=== PATIENT | female | born 1950 | race Caucasian/White ===

== ENCOUNTER 2016-10-29 05:50 | Day surgery (SDC) | payer MEDICARE, OTHER ==
[~2016-10-29 05:50] MED LIST: Dextrose 5%-0.45% NaCl 1,000 ML IV SCH
[2016-10-29] MEDS ORDERED: Dextrose 5%-0.45% NaCl 1,000 ML IV SCH (06:00)
[2016-10-29] MEDS ORDERED: Sodium Chloride 0.9% 10 ML Syringe FLUSH PRN (06:00)
[2016-10-29] MEDS ORDERED: Midazolam 1 MG/ML 2 ML SDV ONE (06:15)
[2016-10-29] MEDS ORDERED: fentaNYL 100 MCG/2 ML SDV ONE (06:15)
[2016-10-29] MEDS ORDERED: fentaNYL 100 MCG/2 ML SDV IV ONE ×3 (07:01→16:13)
[2016-10-29] MEDS ORDERED: Midazolam 1 MG/ML 2 ML SDV IV ONE ×7 (07:02→16:13)
--- NOTE | 2016-10-29 08:04 | OR ---
DATE: 10/29/2016 PROCEDURES: Total colonoscopy and cold snare polypectomy. INSTRUMENT USED: CF-H180AL Olympus video colonoscope. PREMEDICATIONS: Fentanyl 100 mcg intravenous, Versed 4 mg intravenous. Nasal O2 cannula. The procedure was done under pulse oximetry, BP recording, and castings trimmer. INDICATION: The patient with previous colonic tubular adenoma. Surveillance colonoscopic examination is done for detection of any polypoid lesions and removal, endoscopic hemostasis therapy if needed. DESCRIPTION OF PROCEDURE: Initial rectal exam was unremarkable. Rigid anoscopy was normal. The colonoscope was passed with ease up to the ileocecal area, photographs were taken of the normal-appearing cecum, identified by appendiceal orifice and double-bulged ileocecal folds. No bleeding was noted from any of the visualized areas at the commencement of the examination. No stricture. No vascular ectasia. No large isolated ulcerations seen. No evidence of diffuse inflammatory bowel disease in the form of friability, contact bleeding, or ulcerations. In the proximal ascending colon, 5 mm sized benign-appearing polyp was noted, photograph was taken, cold snare polypectomy was done, the tissue was retrieved and sent for histopathology. Probing the proximal sides of folds and flexures, using adequate distention and clearing of the stool material, withdrawal of the scope was made, cecum to rectum time over 6 minutes. No bleeding was noted from any of the visualized areas at the completion of examination. IMPRESSION: Diminutive proximal ascending cold polyp. The patient tolerated the procedure well. [facility] /[id number]
[2016-10-29 09:53] VITALS: BP 120/62
== END 2016-10-29 09:20 | disposition home or self-care (01) ==
LOC: DL.ENDO 05:50
PROVIDERS: ATTEND Internal Medicine Gastroenterology
DX: Z12.11 Encounter for screening for malignant neoplasm of colon (principal); D12.2 Benign neoplasm of ascending colon; E11.22 Type 2 diabetes mellitus with diabetic chronic kidney disease; I12.9 Hypertensive chronic kidney disease with stage 1 through stage 4 chronic kidney disease, or unspecified chronic kidney disease; N18.9 Chronic kidney disease, unspecified; E03.9 Hypothyroidism, unspecified; E78.5 Hyperlipidemia, unspecified; Z88.0 Allergy status to penicillin; Z88.2 Allergy status to sulfonamides; Z88.8 Allergy status to other drugs, medicaments and biological substances
CPT/HCPCS: 45385; J2250; J3010; J7042; 88305

== ENCOUNTER 2019-01-18 06:52 | Day surgery (SDC) | payer MEDICARE, OTHER ==
[~2019-01-18 06:52] MED LIST changes: +Dexamethasone/Tobramycin 0.1-0.3% Ophth Oint 3.5 GM Tube ONE; -Dextrose 5%-0.45% NaCl 1,000 ML IV SCH; +Proparacaine 0.5% Ophth Soln 15 ML Bottle ONE
[2019-01-18] MEDS ORDERED: Dexamethasone 4 MG/ML SDV IV ONE (06:53)
[2019-01-18] MEDS ORDERED: Midazolam 1 MG/ML 2 ML SDV IV ONE (06:53)
[2019-01-18] MEDS ORDERED: Acetaminophen 325 MG Tab PO PRN (07:00)
[2019-01-18] MEDS ORDERED: Phenylephrine 10% Ophth Soln 5 ML Bot EYERT PRN (07:00)
[2019-01-18] MEDS ORDERED: Povidone-Iodine 5% Sterile Ophth Soln 30 ML Bottle EYERT ONE ×2 (07:00→08:19)
[2019-01-18] MEDS ORDERED: Ondansetron 4 MG/2 ML SDV IVPUSH PRN (07:00)
[2019-01-18] MEDS ORDERED: Moxifloxacin 0.5% Ophth Soln 3 ML Bottle EYERT ONE (07:00)
[2019-01-18] MEDS ORDERED: Sodium Chloride 0.9% 10 ML Syringe FLUSH PRN (07:00)
[2019-01-18] MEDS ORDERED: Proparacaine 0.5% Ophth Soln 15 ML Bottle EYERT ONE (07:00)
[2019-01-18] MEDS ORDERED: Cataract Ophth Solution EYERT ONE (07:00)
[2019-01-18] MEDS ORDERED: Timolol Maleate 0.5% Ophth Soln 5 ML Bottle EYERT ONE (07:00)
[2019-01-18] MEDS ORDERED: Phenylephrine 10% Ophth Soln 5 ML Bot EYERT ONE (07:00)
[2019-01-18] MEDS ORDERED: Diclofenac Sodium 0.1% Ophth Soln 5 ML Bottle EYERT ONE (08:19)
[2019-01-18] MEDS ORDERED: Apraclonidine 0.5% Ophth Soln 5 ML Bot EYERT ONE (08:19)
[2019-01-18] MEDS ORDERED: Tetracaine HCl/PF 0.5% 4 ML Bottle EYERT ONE (08:19)
[2019-01-18] MEDS ORDERED: Lidocaine 1% 30 ML SDV ONE (08:19)
[2019-01-18] MEDS ORDERED: Dexamethasone/Tobramycin 0.1-0.3% Ophth Oint 3.5 GM Tube EYERT ONE (08:20)
[2019-01-18] MEDS ORDERED: Chondroitin Sulfate/Hyaluronate Sodium Ophth Inj 0.75 ML Syringe EYERT ONE (08:20)
[2019-01-18] MEDS ORDERED: Balanced Salt Solution Ophth Irrig 500 ML Bottle IOCULAR ONE (08:20)
[2019-01-18] MEDS ORDERED: Chondroitin Sulfate/Hyaluronate Sodium Ophth Inj 0.5 ML Syringe IOCULAR ONE (08:21)
[2019-01-18] MEDS ORDERED: Acetylcholine 20 MG/2 ML Intraocular Inj Kit EYERT ONE (08:21)
[2019-01-18] MEDS ORDERED: Vancomycin 500 MG SDV EYERT ONE (08:21)
[2019-01-18 11:24] VITALS: PULSE 60
[2019-01-18 11:25] VITALS: BP 139/78
--- NOTE | 2019-01-19 08:25 | OR ---
DATE: 01/18/2019 PREOPERATIVE DIAGNOSES: 1. Visually significant mixed cataract, right eye. 2. Primary open angle glaucoma, right eye. POSTOPERATIVE DIAGNOSES: 1. Visually significant mixed cataract, right eye. 2. Primary open angle glaucoma, right eye. PROCEDURES: 1. Extracapsular cataract extraction with intraocular lens implant. 2. Placement of iStent for glaucoma control. SURGEON: Tristan Ansari MD ANESTHESIA: Local MAC. INDICATION: Ms. Broussard was seen in the clinic. Examination revealed visually significant mixed cataract and mild primary open-angle glaucoma. I explained options, offered cataract surgery, and I explained risks, including, but not limited to, infection, retinal detachment, loss of vision, need for additional surgery, amongst others. We discussed implant options. She has requested surgery with a monofocal implant. I recommended the iStent. OPERATIVE DESCRIPTION: The patient was prepped and draped in a sterile fashion and topical anesthesia was applied. Attention was placed on the operative eye. A sterile lid speculum was placed to allow operative exposure. Paracentesis was made temporal. Intracameral lidocaine was administered. Viscoelastic was injected. A full-thickness corneal incision was made using the trapezoidal blade. Bent needle cystotome was then used to make a small beulah in the anterior capsule and a 360-degree curvilinear capsulorrhexis was created. Nucleus was then hydrodissected and hydrodelineated using balanced saline solution. Nucleus was then decompressed centrally and rotated and noted to be free of adhesions. Nucleus was then removed using the phacoemulsification handpiece. Additional viscoelastic was then injected into the capsular bag and the intraocular lens was inserted into the capsular bag. The iStent portion of the procedure was then performed. Following removal of the nucleus and cortex, the irrigation and aspiration handpiece was inserted to remove viscoelastic from the posterior surface of the IOL. Additional viscoelastic was then inserted into the anterior chamber angle directly opposite the corneal incision. Miochol was injected into the nasal iris to promote pupillary contraction. The patient's head was then rotated 35 degrees away from the initial position. The operating microscope was also rotated 35 degrees to achieve the proper orientation. The gonioprism was then placed onto the eye. The iStent was then inserted into the anterior chamber with the right hand and the stent was introduced into the pigmented trabecular meshwork. The stent was advanced beneath the trabecular meshwork until approximately two-thirds of the body was covered and then the stent was released from the insertion device. The stent was then tapped into its final resting position using the insertion device. The device was then reinspected to ensure that it was securely in position. The viscoelastic was aspirated from the anterior chamber. Wound and paracentesis sites were hydrated using balanced saline solution. Vancomycin 0.1 mL was injected into the anterior chamber. Intraocular lens was inspected and noted to be clear and well centered. Postoperative drops were placed and a sterile eye patch and shield were placed over the operative eye. The patient was then transported to the postoperative recovery area having tolerated the procedure well. No complications occurred. [facility] /[id number]
== END 2019-01-18 09:37 | disposition home or self-care (01) ==
LOC: DL.SDS 06:52
PROVIDERS: ATTEND Ophthalmology
DX: E11.36 Type 2 diabetes mellitus with diabetic cataract (principal); H40.1111 Primary open-angle glaucoma, right eye, mild stage; E11.39 Type 2 diabetes mellitus with other diabetic ophthalmic complication; I12.9 Hypertensive chronic kidney disease with stage 1 through stage 4 chronic kidney disease, or unspecified chronic kidney disease; E11.22 Type 2 diabetes mellitus with diabetic chronic kidney disease; N18.9 Chronic kidney disease, unspecified; E78.5 Hyperlipidemia, unspecified; E03.9 Hypothyroidism, unspecified; Z79.899 Other long term (current) drug therapy; Z88.1 Allergy status to other antibiotic agents; Z88.6 Allergy status to analgesic agent; Z88.0 Allergy status to penicillin
CPT/HCPCS: A9270-GY; C1780; C1783; J1100; J2001; J2250; J3370

== ENCOUNTER 2019-07-23 12:14 | Emergency (ER) | payer MEDICARE, OTHER ==
[2019-07-23] MEDS ORDERED: Diphtheria,Pertussis(Acell),Tetanus Vaccine 0.5 ML SDV IM ONE (12:32)
[2019-07-23] MEDS ORDERED: Sodium Chloride 0.9% 10 ML Syringe FLUSH PRN (12:32)
[2019-07-23 12:40] VITALS: BP 115/64; PULSE 74
--- NOTE | 2019-07-23 12:53 | EDM.PDOC ---
ED HPI GENERAL MEDICAL PROBLEM - General Chief Complaint: Head Injury Stated Complaint: FELL AND HIT HEAD Time Seen by Provider: 07/23/19 12:53 Source of Information: Reports: Patient, RN, RN Notes Reviewed History Limitations: Reports: No Limitations - History of Present Illness INITIAL COMMENTS - FREE TEXT/NARRATIVE: patient presents to the ER with her with complaint of blacking out, falling backwards and hitting her head. Patient complains of laceration to the back side of the head. states they were just going to eat breakfast and she was standing at the counter when she stated she became very dizzy and felt as though she was going to pass out. He states she fell backwards and hit her head causing a gash in the back of her head. He states when she came to she ran to the bathroom and was incontinent of stool with a large amount. Patient states history of bipolar disorder. States she was on fluphenazine, and developed a tremor without medication. Last week was started on Abilify. states she has not been herself since she started on the Abilify, not sleeping well at night. Patient states she is borderline diabetic and controls her sugars with diet. Patient denies any cardiac history, denies stroke in the past. Patient denies any recent illness. patient denies fever, chills, nausea, vomiting, diarrhea, chest pains, shortness of breath. Patient denies any exposure to anyone with any known illness, and denies any travel. Patient staes she does have some neck tenderness since the fall this morning. Also states her tailbone hurts as approximately 1 week ago she fell on the steps landing on her backside. Onset: Today, Sudden Posterior Head Pain Score (Numeric/FACES): 6 - Related Data Allergies Allergy/AdvReac Type Severity Reaction Status Date / Time cefaclor Allergy Hives Verified 07/23/19 12:34 celecoxib Allergy Hives Verified 07/23/19 12:34 Penicillins Allergy Hives Verified 07/23/19 12:34 Sulfa (Sulfonamide Allergy Rash Verified 07/23/19 12:34 Antibiotics) Home Meds: Home Meds Ascorbic Acid [Vitamin C] 100 mg PO DAILY 10/28/16 [History] Calcium Carbonate/Vitamin D3 [Calcium 600 + Vit D Tablet] 2 tab PO DAILY [History] Levothyroxine [Synthroid] 100 mcg PO DAILY 10/28/16 [History] Multivitamin [Super Multivitamin] 1 tab PO DAILY 10/28/16 [History] Timolol [Betimol] 1 drop EYEBOTH DAILY 10/28/16 [History] Vitamin E 400 units PO DAILY 10/28/16 [History] traZODone 100 mg PO BEDTIME 10/28/16 [History] fluPHENAZine HCl [fluPHENAZine] 10 mg PO DAILY 03/10/18 [History] Ketorolac [Acular 0.5% Ophth Soln] 1 drop EYELF ASDIRECTED 01/09/19 [History] Latanoprost [Xalatan 0.005% Ophth Soln] 1 drop EYEBOTH BEDTIME 01/09/19 [History ] Moxifloxacin [Vigamox 0.5% Ophth Soln] 1 drop EYELF ASDIRECTED 01/09/19 [History ] Prednisolone Acetate/Pf [Prednisolone Acet 1% Eye Drop] 1 drop EYELF ASDIRECTED 01/09/19 [History] Rosuvastatin [Crestor] 5 mg PO DAILY 01/09/19 [History] Brimonidine/Timolol [Combigan 0.2%/0.5% Ophth Soln] 1 drop EYEBOTH BID 01/18/19 [History] Past Medical History HEENT History: Reports: Cataract, Glaucoma, Impaired Vision, Other (See Below) Other HEENT History: WEARS CORRECTIVE LENS Cardiovascular History: Reports: Arrhythmia, High Cholesterol, Hypertension Respiratory History: Reports: None Gastrointestinal History: Reports: Chronic Diarrhea, Colon Polyp, Irritable Bowel Syndrome Genitourinary History: Reports: Chronic Renal Insuffiency, Other (See Below) Other Genitourinary History: HX OF HYPERURICEMIA [employer] History: Reports: Polycystic Ovaries Musculoskeletal History: Reports: Other (See Below) Other Musculoskeletal History: chronic interstitial nephritis Neurological History: Reports: None Psychiatric History: Reports: Anxiety, Bipolar, Depression, Schizophrenia Endocrine/Metabolic History: Reports: Diabetes, Type II, Hyperparathyroidism, Hypothyroidism, Osteopenia, Other (See Below) Other Endocrine/Metabolic History: Hyperkalemia. Bone metabolism disorder. Lipid disorder Hematologic History: Reports: Other (See Below) Other Hematologic History: microalbuminuria Immunologic History: Reports: None Oncologic (Cancer) History: Reports: None Dermatologic History: Reports: None - Infectious Disease History Infectious Disease History: Reports: Chicken Pox, Measles, Mumps - Past Surgical History Head Surgeries/Procedures: Reports: None HEENT Surgical History: Reports: Oral Surgery Cardiovascular Surgical History: Reports: None Respiratory Surgical History: Reports: None GI Surgical History: Reports: Colonoscopy, Polypectomy Female Surgical History: Reports: None Endocrine Surgical History: Reports: None Neurological Surgical History: Reports: None Musculoskeletal Surgical History: Reports: None Oncologic Surgical History: Reports: None Dermatological Surgical History: Reports: None Social & Family History - Family History Family Medical History: Noncontributory - Tobacco Use Smoking Status *Q: Never Smoker - Caffeine Use Caffeine Use: Reports: Coffee Other Caffeine Use: AVERAGE OF 3 CUPS COFFEE DAILY - Recreational Drug Use Recreational Drug Use: No ED ROS GENERAL - Review of Systems Review Of Systems: Comprehensive ROS is negative, except as noted in HPI. ED EXAM, HEAD INJURY - Physical Exam Exam: See Below Exam Limited By: No Limitations General Appearance: Alert, WD/WN, No Apparent Distress Head: Normocephalic, Scalp Lacerations Nexus Criteria: Posterior, Midline Cervical Tenderness. No: Evidence of Intoxication, Altered Level of Consciousness, Focal Neurological Deficit, Painful Distraction Injuries Eyes: Bilateral Eye: Abnormal EOM, EOMI, Normal Inspection Ears: Normal External Exam, Hearing Grossly Normal Nose: Normal Inspection Throat/Mouth: Normal Inspection, Normal Lips, Normal Teeth, Normal Gums, Normal Oropharynx, Normal Voice, No Airway Compromise Neck: Normal Alignment, Normal Inspection, Limited Range of Motion, Tender Lateral, Tender Midline Respiratory: No Respiratory Distress, Lungs Clear, Normal Breath Sounds, No Accessory Muscle Use, Chest Non-Tender Cardiovascular: Normal Peripheral Pulses, Regular Rate, Rhythm, No Edema, No Gallop, No JVD, No Murmur, No Rub GI/Abdominal Exam: Normal Bowel Sounds, Soft, Non-Tender, No Organomegaly, No Distention, No Abnormal Bruit, No Mass (Female) Exam: Deferred Rectal (Female) Exam: Deferred Back Exam: Normal Inspection, Decreased Range of Motion Extremities: Normal Inspection, Normal Range of Motion, Non-Tender, No Pedal Edema, Normal Capillary Refill Neurologic: handbook writer II-XII nml As Tested, No Motor/Sensory Deficits, Alert, Normal Mood/Affect, Oriented x 3, Other (flat affect) Skin: Normal Color, Warm/Dry - [place] Coma Score Best Eye Response (Santos): (4) Open Spontaneously Best Verbal Response (Santos): (5) Oriented Best Motor Response (Santos): (6) Obeys Commands [place] Total: 15 ED LACERATION/WOUND & BONI PROC - Laceration/Wound Repair Left Middle Posterior Occipital Head Lac/wound length in cm: 2.5 Appearance: Subcutaneous Distal NVT: Neuro & Vascular Intact Skin Prep: Chlorhexidine (Hibiciens) Exploration/Debridement/Repair: Wound Explored, In a Bloodless Field, Explored to Base, No Foreign Material Found Closed with: [place] # of Sutures: 5 Drain Placement: No Sterile Dressing Applied: Nurse Tetanus Status Addressed: Yes Complications: No Course - Vital Signs Last Recorded V/S: Last Vital Signs Temp 97.8 F 07/23/19 12:34 Pulse 74 07/23/19 12:34 Resp 16 07/23/19 12:34 BP 115/64 07/23/19 12:34 Pulse Ox 100 07/23/19 12:34 - Orders/Labs/Meds Orders: Active Orders 24 hr Category Date Time Status EKG Documentation Completion [RC] STAT Care 07/23/19 12:34 Active Peripheral IV Care [RC] . DIRECTED Care 07/23/19 12:35 Active Vaccines to be Administered [RC] PER UNIT ROUTINE Care 07/23/19 12:32 Active Cervical Spine wo Cont [CT] Urgent Exams 07/23/19 13:12 Taken Head wo Cont [CT] Stat Exams 07/23/19 12:32 Taken Lumbar Spine 2 or 3V [CR] Urgent Exams 07/23/19 13:12 Taken Sacrum Coccyx Min 2V [CR] Urgent Exams 07/23/19 13:12 Taken CULTURE URINE [RM] Stat Lab 07/23/19 14:00 Received Sodium Chloride 0.9% [Saline Flush] Med 07/23/19 12:32 Active 10 ml FLUSH ASDIRECTED PRN Peripheral IV Insertion Adult [OM.PC] Stat Oth 07/23/19 12:35 Ordered Medication Orders Sodium Chloride (Saline Flush) 10 ml FLUSH ASDIRECTED PRN PRN Reason: Keep Vein Open Labs: Laboratory Tests 07/23/19 07/23/19 07/23/19 Range/Units 12:46 12:46 12:46 WBC 7.7 (5.0-10.0) 10^3/uL RBC 3.97 L (4.2-5.4) 10^6/uL Hgb 12.5 (12.0-16.0) g/dL Hct 36.5 L (37.0-47.0) % MCV 91.9 (80-100) fL MCH 31.5 (27.0-34.0) pg MCHC 34.2 (33.0-35.0) g/dL Plt Count 270 (150-450) 10^3/uL Neut % (Auto) 71.5 (42.2-75.2) % Lymph % (Auto) 17.7 L (20.5-50.1) % [place] % (Auto) 9.7 H (2-8) % Eos % (Auto) 0.6 L (1.0-3.0) % Baso % (Auto) 0.5 (0.0-1.0) % PT 10.2 (9.0-12.0) SEC INR 1.1 (0.9-1.2) Sodium 139 (136-145) mmol/L Potassium 3.9 (3.5-5.1) mmol/L Chloride 101 (98-107) mmol/L Carbon Dioxide 27 (21-32) mmol/L Anion Gap 14.9 H (7-13) mEq/L BUN 23 H (7-18) mg/dL Creatinine 1.43 H (0.55-1.02) mg/dL Est Cr Clr Drug Dosing TNP Estimated GFR (MDRD) 36 BUN/Creatinine Ratio 16.1 (No establ ref range) Glucose 133 H (74-99) mg/dL Calcium 8.8 (8.5-10.1) mg/dL Total Bilirubin 0.4 (0.2-1.0) mg/dL AST 22 (15-37) U/L ALT 34 (14-59) U/L Alkaline Phosphatase 65 (46-116) U/L Troponin I < 0.017 (0.000-0.056) ng/mL Total Protein 7.0 (6.4-8.2) g/dL Albumin 3.9 (3.4-5.0) g/dL Globulin 3.1 Albumin/Globulin Ratio 1.3 Urine Color (YELLOW) Urine Appearance (CLEAR) Urine pH (5.0-9.0) Ur Specific [place] (1.005-1.030) Urine Protein (NEGATIVE) Urine Glucose (UA) (NEGATIVE) Urine Ketones (NEGATIVE) Urine Occult Blood (NEGATIVE) Urine Nitrite (NEGATIVE) Urine Bilirubin (NEGATIVE) Urine Urobilinogen (0.2-1.0) mg/dL Ur Leukocyte Esterase (NEGATIVE) U Hyaline Cast (Auto) Urine RBC /HPF Urine WBC (0-5/HPF) /HPF Ur Epithelial Cells (NOT SEEN) /HPF Urine Bacteria (0-FEW/HPF) /HPF Urine Mucus (NOT SEEN) /LPF Urine Opiates Screen (NEGATIVE) Ur Oxycodone Screen (NEGATIVE) Urine Methadone Screen (NEGATIVE) Ur Barbiturates Screen (NEGATIVE) U Tricyclic Antidepress (NEGATIVE) Ur Phencyclidine Scrn (NEGATIVE) Ur Amphetamine Screen (NEGATIVE) U Methamphetamines Scrn (NEGATIVE) Urine MDMA Screen (NEGATIVE) U Benzodiazepines Scrn (NEGATIVE) Urine Cocaine Screen (NEGATIVE) U Marijuana (THC) Screen (NEGATIVE) Ethyl Alcohol < 3 (0) mg/dL 07/23/19 07/23/19 Range/Units 14:00 14:00 WBC (5.0-10.0) 10^3/uL RBC (4.2-5.4) 10^6/uL Hgb (12.0-16.0) g/dL Hct (37.0-47.0) % MCV (80-100) fL MCH (27.0-34.0) pg MCHC (33.0-35.0) g/dL Plt Count (150-450) 10^3/uL Neut % (Auto) (42.2-75.2) % Lymph % (Auto) (20.5-50.1) % [place] % (Auto) (2-8) % Eos % (Auto) (1.0-3.0) % Baso % (Auto) (0.0-1.0) % PT (9.0-12.0) SEC INR (0.9-1.2) Sodium (136-145) mmol/L Potassium (3.5-5.1) mmol/L Chloride (98-107) mmol/L Carbon Dioxide (21-32) mmol/L Anion Gap (7-13) mEq/L BUN (7-18) mg/dL Creatinine (0.55-1.02) mg/dL Est Cr Clr Drug Dosing Estimated GFR (MDRD) BUN/Creatinine Ratio (No establ ref range) Glucose (74-99) mg/dL Calcium (8.5-10.1) mg/dL Total Bilirubin (0.2-1.0) mg/dL AST (15-37) U/L ALT (14-59) U/L Alkaline Phosphatase (46-116) U/L Troponin I (0.000-0.056) ng/mL Total Protein (6.4-8.2) g/dL Albumin (3.4-5.0) g/dL Globulin Albumin/Globulin Ratio Urine Color Yellow (YELLOW) Urine Appearance Clear (CLEAR) Urine pH 6.5 (5.0-9.0) Ur Specific [place] 1.025 (1.005-1.030) Urine Protein 30 H (NEGATIVE) Urine Glucose (UA) Negative (NEGATIVE) Urine Ketones 15 H (NEGATIVE) Urine Occult Blood Negative (NEGATIVE) Urine Nitrite Negative (NEGATIVE) Urine Bilirubin Negative (NEGATIVE) Urine Urobilinogen 0.2 (0.2-1.0) mg/dL Ur Leukocyte Esterase Trace H (NEGATIVE) U Hyaline Cast (Auto) Few Urine RBC 0-5 /HPF Urine WBC 0-5 (0-5/HPF) /HPF Ur Epithelial Cells Few (NOT SEEN) /HPF Urine Bacteria Few (0-FEW/HPF) /HPF Urine Mucus Few H (NOT SEEN) /LPF Urine Opiates Screen Negative (NEGATIVE) Ur Oxycodone Screen Negative (NEGATIVE) Urine Methadone Screen Negative (NEGATIVE) Ur Barbiturates Screen Negative (NEGATIVE) U Tricyclic Antidepress Negative (NEGATIVE) Ur Phencyclidine Scrn Negative (NEGATIVE) Ur Amphetamine Screen Negative (NEGATIVE) U Methamphetamines Scrn Negative (NEGATIVE) Urine MDMA Screen Negative (NEGATIVE) U Benzodiazepines Scrn Negative (NEGATIVE) Urine Cocaine Screen Negative (NEGATIVE) U Marijuana (THC) Screen Negative (NEGATIVE) Ethyl Alcohol (0) mg/dL Meds: Medications Generic Name Dose Route Start Last Admin Trade Name Freq PRN Reason Stop Dose Admin Sodium Chloride 10 ml 07/23/19 12:32 Saline Flush FLUSH ASDIRECTED PRN Keep Vein Open Discontinued Medications Generic Name Dose Route Start Last Admin Trade Name Freq PRN Reason Stop Dose Admin Diphtheria/Tetanus/Acell Pertussis 0.5 ml 07/23/19 12:32 07/23/19 14:02 Adacel IM 07/23/19 12:33 0.5 ml .ONCE ONE Administration - Radiology Interpretation Free Text/Narrative:: head CT without contrast: FINDINGS: Brain: The brain demonstrates generalized volume loss. Patchy hypodensities in the deep and subcortical white matter most likely representing mild chronic small vessel ischemic change. No hemorrhage. No visible evolving territorial infarct. Ventricles: The ventricles appear enlarged in keeping with volume loss. Bones/joints: No acute calvarial fracture seen. Sinuses: The left sphenoid sinus is nearly opacified by mucosal disease. Mastoid air cells: Small right mastoid effusion. Orbits: Thinning of the lenses of the globes consistent with prior lens surgery. Soft tissues: Left occipital scalp soft tissue swelling with cutaneous chivo. IMPRESSION: No acute intracranial abnormality seen. Thank you for allowing us to participate in the care of your patient. Dictated and Authenticated by: Belén Zee MD 07/23/2019 2:16 PM Central Time ([place] & [place]) C-spine CT without contrast: FINDINGS: Vertebrae: Straightening of the normal cervical lordosis may be positional or due to muscle spasm. No acute fracture seen. There is diffuse osseous demineralization. Discs/Spinal canal/Neural foramina: Mild disc height loss and spondylosis with uncovertebral arthropathy at C6-C7. [id number] degenerative changes at C1-C2. Mild-to- moderate right cervical facet arthropathy. Soft tissues: Unremarkable. Lungs: Lung apices are normal. IMPRESSION: No cervical spine fracture seen. Thank you for allowing us to participate in the care of your patient. Dictated and Authenticated by: Belén Zee MD 07/23/2019 2:21 PM Central Time ([place] & [place]) Lumbar x-ray: FINDINGS: Vertebrae: Slight upper lumbar dextroconvex scoliosis. No acute fracture seen. There is disc height loss and spondylosis, in particular prevertebral spondylosis at L5-S1. Soft tissues: Unremarkable. IMPRESSION: No lumbar spine fracture seen. Thank you for allowing us to participate in the care of your patient. Dictated and Authenticated by: Belén Zee MD 07/23/2019 2:23 PM Central Time ([place] & [place]) Sacrum/coccyx x-ray: FINDINGS: Bones/joints: Slight posterior displacement of the distal coccyx, probably normal variation. No acute fracture seen. Soft tissues: Unremarkable. IMPRESSION: No acute fracture seen. Thank you for allowing us to participate in the care of your patient. Dictated and Authenticated by: Belén Zee MD 07/23/2019 2:25 PM Central Time ([place] & [place]) See radiologist's report Departure - Departure Time of Disposition: 14:29 Disposition: Home, Self-Care 01 Condition: Fair Clinical Impression: Laceration Episode of syncope Qualifiers: Syncope type: unspecified Qualified Code(s): R55 - Syncope and collapse Head injury Qualifiers: Encounter type: initial encounter Qualified Code(s): S09.90XA - Unspecified injury of head, initial encounter Bipolar affective Qualifiers: Active/Remission status: remission status unspecified Qualified Code(s): F31.9 - Bipolar disorder, unspecified - Discharge Information *PRESCRIPTION DRUG MONITORING PROGRAM REVIEWED*: No *COPY OF PRESCRIPTION DRUG MONITORING REPORT IN PATIENT LORY: No Instructions: Head Injury, Adult, [id number], How to Use Cold Therapy, Easy- to-Read, Facial or Scalp Contusion, [id number], Concussion, Adult, Easy-to- Read, Syncope, [id number], Hematoma, [id number], Laceration Care, Adult, [id number], Sutures, Chivo, or Adhesive Wound Closure, [id number] Forms: ED Department Discharge Additional Instructions: Follow up with your primary care facility in 7-10 days for recheck of wound and to have chivo removed Follow up with the [facility] [place] regarding medication changes recently and side effects Drink plenty of water May use Tylenol as directed for pain/headache Use heating pad to the low back/sacrum area for comfort Sepsis Event Note - Evaluation Sepsis Screening Result: No Definite Risk - Focused Exam Vital Signs: Vital Signs Temp Pulse Resp BP Pulse Ox 07/23/19 12:34 97.8 F 74 16 115/64 100 Date Exam was Performed: 07/23/19 Time Exam was Performed: 14:29 - My Orders Last 24 Hours: My Active Orders 07/23/19 12:32 Vaccines to be Administered [RC] PER UNIT ROUTINE Head wo Cont [CT] Stat Sodium Chloride 0.9% [Saline Flush] 10 ml FLUSH ASDIRECTED PRN 07/23/19 12:34 EKG Documentation Completion [RC] STAT 07/23/19 12:35 Peripheral IV Care [RC] . DIRECTED Peripheral IV Insertion Adult [OM.PC] Stat 07/23/19 13:12 Cervical Spine wo Cont [CT] Urgent Lumbar Spine 2 or 3V [CR] Urgent Sacrum Coccyx Min 2V [CR] Urgent 07/23/19 14:00 CULTURE URINE [RM] Stat - Assessment/Plan Last 24 Hours: My Active Orders 07/23/19 12:32 Vaccines to be Administered [RC] PER UNIT ROUTINE Head wo Cont [CT] Stat Sodium Chloride 0.9% [Saline Flush] 10 ml FLUSH ASDIRECTED PRN 07/23/19 12:34 EKG Documentation Completion [RC] STAT 07/23/19 12:35 Peripheral IV Care [RC] . DIRECTED Peripheral IV Insertion Adult [OM.PC] Stat 07/23/19 13:12 Cervical Spine wo Cont [CT] Urgent Lumbar Spine 2 or 3V [CR] Urgent Sacrum Coccyx Min 2V [CR] Urgent 07/23/19 14:00 CULTURE URINE [RM] Stat
[2019-07-23 13:20] LABS: ANION GAP 14.9 mEq/L (7-13); CHLORIDE,CL 101 mmol/L (98-107); SODIUM,NA 139 mmol/L (136-145)
== END 2019-07-23 14:43 | disposition home or self-care (01) ==
LOC: DL.ED 12:14
DX: S01.01XA Laceration without foreign body of scalp, initial encounter (principal); F31.9 Bipolar disorder, unspecified; R55 Syncope and collapse; E78.00 Pure hypercholesterolemia, unspecified; I10 Essential (primary) hypertension; F41.9 Anxiety disorder, unspecified; E11.9 Type 2 diabetes mellitus without complications; E03.9 Hypothyroidism, unspecified; Z79.899 Other long term (current) drug therapy; Z88.1 Allergy status to other antibiotic agents; Z88.0 Allergy status to penicillin; Z88.2 Allergy status to sulfonamides; Z23 Encounter for immunization; W22.8XXA Striking against or struck by other objects, initial encounter
CPT/HCPCS: 12001; 36415; 70450; 72100; 72125; 72220; 80053; 80305-QW; 80307; 81001; 84484; 85025; 85610; 87086; 90471; 90715; 93005; 99283; 99284-25

== ENCOUNTER 2019-09-14 18:05 | Emergency (ER) | payer MEDICARE, OTHER ==
[2019-09-14] MEDS ORDERED: Sodium Chloride 0.9% 10 ML Syringe FLUSH PRN (18:16)
--- NOTE | 2019-09-14 18:31 | EDM.PDOC ---
<Roseann Parker - Last Filed: 09/14/19 18:31> ED HPI GENERAL MEDICAL PROBLEM - General Chief Complaint: Cardiovascular Problem Stated Complaint: HIGH BLOOD PRESSURE Time Seen by Provider: 09/14/19 19:17 - Related Data Allergies Allergy/AdvReac Type Severity Reaction Status Date / Time cefaclor Allergy Hives Verified 09/14/19 18:20 celecoxib Allergy Hives Verified 09/14/19 18:20 Penicillins Allergy Hives Verified 09/14/19 18:20 Sulfa (Sulfonamide Allergy Rash Verified 09/14/19 18:20 Antibiotics) Home Meds: Home Meds Ascorbic Acid [Vitamin C] 100 mg PO DAILY 10/28/16 [History] Calcium Carbonate/Vitamin D3 [Calcium 600 + Vit D Tablet] 2 tab PO DAILY [History] Levothyroxine [Synthroid] 100 mcg PO DAILY 10/28/16 [History] Multivitamin [Super Multivitamin] 1 tab PO DAILY 10/28/16 [History] Timolol [Betimol] 1 drop EYEBOTH DAILY 10/28/16 [History] Vitamin E 400 units PO DAILY 10/28/16 [History] fluPHENAZine HCl [fluPHENAZine] 10 mg PO BEDTIME 03/10/18 [History] Latanoprost [Xalatan 0.005% Ophth Soln] 1 drop EYEBOTH BEDTIME 01/09/19 [History ] Rosuvastatin [Crestor] 5 mg PO DAILY 01/09/19 [History] ARIPiprazole [Aripiprazole] 20 mg PO DAILY 09/14/19 [History] QUEtiapine [SEROquel] 150 mg PO BEDTIME 09/14/19 [History] amLODIPine Besylate [Amlodipine Besylate] 10 mg PO DAILY 09/14/19 [History] fluPHENAZine HCl [Fluphenazine HCl] 5 mg PO DAILY 09/14/19 [History] Past Medical History HEENT History: Reports: Cataract, Glaucoma, Impaired Vision, Other (See Below) Other HEENT History: WEARS CORRECTIVE LENS Cardiovascular History: Reports: Arrhythmia, High Cholesterol, Hypertension Respiratory History: Reports: None Gastrointestinal History: Reports: Chronic Diarrhea, Colon Polyp, Irritable Bowel Syndrome Genitourinary History: Reports: Chronic Renal Insuffiency, Other (See Below) Other Genitourinary History: HX OF HYPERURICEMIA LOCAL [employer] History: Reports: Polycystic Ovaries Musculoskeletal History: Reports: Other (See Below) Other Musculoskeletal History: chronic interstitial nephritis Neurological History: Reports: None Psychiatric History: Reports: Anxiety, Bipolar, Depression, Schizophrenia Endocrine/Metabolic History: Reports: Diabetes, Type II, Hyperparathyroidism, Hypothyroidism, Osteopenia, Other (See Below) Other Endocrine/Metabolic History: Hyperkalemia. Bone metabolism disorder. Lipid disorder Hematologic History: Reports: Other (See Below) Other Hematologic History: microalbuminuria Immunologic History: Reports: None Oncologic (Cancer) History: Reports: None Dermatologic History: Reports: None - Infectious Disease History Infectious Disease History: Reports: Chicken Pox, Measles, Mumps - Past Surgical History Head Surgeries/Procedures: Reports: None HEENT Surgical History: Reports: Oral Surgery Cardiovascular Surgical History: Reports: None Respiratory Surgical History: Reports: None GI Surgical History: Reports: Colonoscopy, Polypectomy Female Surgical History: Reports: None Endocrine Surgical History: Reports: None Neurological Surgical History: Reports: None Musculoskeletal Surgical History: Reports: None Oncologic Surgical History: Reports: None Dermatological Surgical History: Reports: None Social & Family History - Family History Family Medical History: Noncontributory - Caffeine Use Caffeine Use: Reports: Coffee Other Caffeine Use: AVERAGE OF 3 CUPS COFFEE DAILY Course - Vital Signs Last Recorded V/S: Last Vital Signs Temp 36.3 C 09/14/19 18:10 Pulse 93 09/14/19 18:10 Resp 16 09/14/19 18:10 BP 193/107 H 09/14/19 19:41 Pulse Ox 99 09/14/19 18:10 - Orders/Labs/Meds Orders: Active Orders 24 hr Category Date Time Status EKG Documentation Completion [RC] STAT Care 09/14/19 18:17 Active Peripheral IV Care [RC] . DIRECTED Care 09/14/19 18:26 Active UA RFX JEEVAN AND CULT IF INDIC [URIN] Stat Lab 09/14/19 18:18 Ordered Sodium Chloride 0.9% [Saline Flush] Med 09/14/19 18:16 Active 10 ml FLUSH ASDIRECTED PRN Peripheral IV Insertion Adult [OM.PC] Stat Oth 09/14/19 18:17 Ordered Medication Orders Sodium Chloride (Saline Flush) 10 ml FLUSH ASDIRECTED PRN PRN Reason: Keep Vein Open Labs: Laboratory Tests 09/14/19 09/14/1909/13/20 Range/Units 18:29 18:58 18:58 WBC 7.3 (5.0-10.0) 10^3/uL RBC 4.42 (4.2-5.4) 10^6/uL Hgb 14.1 D (12.0-16.0) g/dL Hct 40.6 (37.0-47.0) % MCV 91.9 (80-100) fL MCH 31.9 (27.0-34.0) pg MCHC 34.7 (33.0-35.0) g/dL Plt Count 224 (150-450) 10^3/uL Neut % (Auto) 59.3 (42.2-75.2) % Lymph % (Auto) 27.6 (20.5-50.1) % Caroline % (Auto) 10.9 H (2-8) % Eos % (Auto) 1.8 (1.0-3.0) % Baso % (Auto) 0.4 (0.0-1.0) % D-Dimer, Quantitative (0-400) ng/mL Sodium 137 (136-145) mmol/L Potassium 4.1 (3.5-5.1) mmol/L Chloride 97 L (98-107) mmol/L Carbon Dioxide 32 (21-32) mmol/L Anion Gap 12.1 (7-13) mEq/L BUN 25 H (7-18) mg/dL Creatinine 1.25 H (0.55-1.02) mg/dL Est Cr Clr Drug Dosing 37.20 mL/min Estimated GFR (MDRD) 43 BUN/Creatinine Ratio 20.0 (No establ ref range) Glucose 111 H (74-99) mg/dL Calcium 10.0 (8.5-10.1) mg/dL Total Bilirubin 0.3 (0.2-1.0) mg/dL AST 21 (15-37) U/L ALT 32 (14-59) U/L Alkaline Phosphatase 84 (46-116) U/L Troponin I < 0.017 (0.000-0.056) ng/mL Total Protein 7.8 (6.4-8.2) g/dL Albumin 4.4 (3.4-5.0) g/dL Globulin 3.4 Albumin/Globulin Ratio 1.3 SARS-CoV-2 RNA (RT-PCR) Negative (NEGATIVE) 09/14/19 Range/Units 18:58 WBC (5.0-10.0) 10^3/uL RBC (4.2-5.4) 10^6/uL Hgb (12.0-16.0) g/dL Hct (37.0-47.0) % MCV (80-100) fL MCH (27.0-34.0) pg MCHC (33.0-35.0) g/dL Plt Count (150-450) 10^3/uL Neut % (Auto) (42.2-75.2) % Lymph % (Auto) (20.5-50.1) % Caroline % (Auto) (2-8) % Eos % (Auto) (1.0-3.0) % Baso % (Auto) (0.0-1.0) % D-Dimer, Quantitative 182 (0-400) ng/mL Sodium (136-145) mmol/L Potassium (3.5-5.1) mmol/L Chloride (98-107) mmol/L Carbon Dioxide (21-32) mmol/L Anion Gap (7-13) mEq/L BUN (7-18) mg/dL Creatinine (0.55-1.02) mg/dL Est Cr Clr Drug Dosing mL/min Estimated GFR (MDRD) BUN/Creatinine Ratio (No establ ref range) Glucose (74-99) mg/dL Calcium (8.5-10.1) mg/dL Total Bilirubin (0.2-1.0) mg/dL AST (15-37) U/L ALT (14-59) U/L Alkaline Phosphatase (46-116) U/L Troponin I (0.000-0.056) ng/mL Total Protein (6.4-8.2) g/dL Albumin (3.4-5.0) g/dL Globulin Albumin/Globulin Ratio SARS-CoV-2 RNA (RT-PCR) (NEGATIVE) Meds: Medications Generic Name Dose Route Start Last Admin Trade Name Freq PRN Reason Stop Dose Admin Sodium Chloride 10 ml 09/14/19 18:16 Saline Flush FLUSH ASDIRECTED PRN Keep Vein Open Discontinued Medications Generic Name Dose Route Start Last Admin Trade Name Freq PRN Reason Stop Dose Admin Clonidine HCl 0.1 mg 09/14/19 19:37 09/14/19 19:41 Catapres PO 09/14/19 19:38 0.1 mg ONETIME ONE Administration Labetalol HCl 10 mg 09/14/19 18:36 09/14/19 19:06 Normodyne IVPUSH 09/14/19 18:37 Not Given ONETIME ONE Departure - Departure Disposition: Home, Self-Care 01 Clinical Impression: Hypertension Qualifiers: Hypertension type: unspecified Qualified Code(s): I10 - Essential (primary) hypertension Instructions: Hypertension, Adult, [id number] Forms: ED Department Discharge Additional Instructions: 1) avoid excess activities 2) see family doctor tomorrow for BP management 3) recheck if there is any change or concern Sepsis Event Note - Focused Exam Vital Signs: Vital Signs Temp Pulse Resp BP BP Pulse Ox 09/14/19 19:41 193/107 H 09/14/19 18:10 36.3 C 93 16 205/102 H 99 <Mikey Escoto - Last Filed: 09/14/19 20:09> ED HPI GENERAL MEDICAL PROBLEM - General Source of Information: Reports: Patient History Limitations: Reports: No Limitations - History of Present Illness INITIAL COMMENTS - FREE TEXT/NARRATIVE: states woke up from nap and decided to make some chicken drum sticks and felt light headed and felt like dizzy room spinning took BP was high went to clinic and was still high and even had covid test and negative, sent here by clinic. pt states right now feels back to normal and no longer dizzy. denies CP/SOB. denies URI Sx. ED ROS GENERAL - Review of Systems Review Of Systems: Comprehensive ROS is negative, except as noted in HPI. ED EXAM, GENERAL - Physical Exam Exam: See Below Exam Limited By: No Limitations General Appearance: Alert, WD/WN, No Apparent Distress Eye Exam: Bilateral Eye: PERRL (pupils ER @ 4mm) Ears: Hearing Grossly Normal Throat/Mouth: Normal Voice, No Airway Compromise Head: Atraumatic Neck: Non-Tender, Full Range of Motion Respiratory/Chest: No Respiratory Distress, Lungs Clear, Normal Breath Sounds Cardiovascular: Regular Rate, Rhythm, No Murmur GI/Abdominal: Soft, Non-Tender Extremities: No Pedal Edema Neurological: Alert, Oriented, Normal Cognition, Normal Gait, No Motor/Sensory Deficits Psychiatric: Normal Affect, Normal Mood Skin Exam: Warm, Dry, Normal Color Lymphatic: No Adenopathy Course - Re-Assessments/Exams Free Text/Narrative Re-Assessment/Exam: 09/14/19 20:07 results discussed with pt who is still feeling well. BP has decreased. Departure - Departure Time of Disposition: 20:08 Condition: Good Sepsis Event Note - Focused Exam Date Exam was Performed: 09/14/19 Time Exam was Performed: 20:07
[2019-09-14] MEDS ORDERED: Labetalol 20 MG/4 ML Syringe IVPUSH ONE (18:36)
[2019-09-14 18:38] VITALS: PULSE 93
[2019-09-14 19:25] LABS: ANION GAP 12.1 mEq/L (7-13); CHLORIDE,CL 97 mmol/L (98-107); SODIUM,NA 137 mmol/L (136-145)
[2019-09-14] MEDS ORDERED: cloNIDine 0.1 MG Tab PO ONE (19:37)
[2019-09-14 19:42] VITALS: BP 193/107
== END 2019-09-14 20:13 | disposition home or self-care (01) ==
LOC: DL.ED 18:05
DX: I12.9 Hypertensive chronic kidney disease with stage 1 through stage 4 chronic kidney disease, or unspecified chronic kidney disease (principal); E11.22 Type 2 diabetes mellitus with diabetic chronic kidney disease; N18.9 Chronic kidney disease, unspecified; F20.9 Schizophrenia, unspecified; F31.9 Bipolar disorder, unspecified; F41.9 Anxiety disorder, unspecified; E78.00 Pure hypercholesterolemia, unspecified; Z88.1 Allergy status to other antibiotic agents; Z88.0 Allergy status to penicillin; Z88.2 Allergy status to sulfonamides; Z88.6 Allergy status to analgesic agent
CPT/HCPCS: 36415; 71045; 80053; 84484; 85025; 85379; 93005; 99284; A9270; U0002; 99283

== ENCOUNTER 2024-04-08 13:41 | Emergency (ER) | payer MEDICARE, OTHER ==
[2024-04-08 13:46] VITALS: BP 170/144; PULSE 85
[2024-04-08 13:56] LABS: BASOPHILS PERCENT AUTO 0.4 % (0.0-1.0); EOSINOPHILS PERCENT AUTO 1.3 % (1.0-3.0); HEMATOCRIT 41.8 % (37.0-47.0); HEMOGLOBIN 13.8 g/dL (12.0-16.0); LYMPHOCYTES PERCENT AUTO 27.9 % (20.5-50.1); MEAN CORPUSCULAR HEMOGLOBIN 31.2 pg (27.0-34.0); MEAN CORPUSCULAR VOLUME 94.4 fL (80-100); MONOCYTES PERCENT AUTO 10.3 % (2-8); NEUTROPHILS PERCENT AUTO 60.1 % (42.2-75.2); PLATELET COUNT,PLT 255 10^3/uL (150-450); RED BLOOD CELL COUNT 4.43 10^6/uL (4.2-5.4); WHITE BLOOD CELL COUNT,WBC 7.8 10^3/uL (5.0-10.0)
[2024-04-08 14:16] LABS: APPEARANCE,URINE CLEAR (CLEAR); BILIRUBIN,URINE NEGATIVE (NEGATIVE); COLOR,URINE YELLOW (YELLOW); GLUCOSE,URINE 500 (NEGATIVE); KETONES,URINE NEGATIVE (NEGATIVE); LEUKOCYTE ESTERASE,URINE NEGATIVE (NEGATIVE); NITRITE,URINE NEGATIVE (NEGATIVE); OCCULT BLOOD,URINE NEGATIVE (NEGATIVE); PROTEIN,URINE NEGATIVE (NEGATIVE); UROBILINOGEN,URINE 0.2 mg/dL (0.2-1.0)
[2024-04-08 14:16] LABS: A/G RATIO 1.1; ALBUMIN 3.9 g/dL (3.4-5.0); ANION GAP 13.5 mEq/L (7-13); BILIRUBIN TOTAL 0.4 mg/dL (0.2-1.0); BUN/CREATININE RATIO 17.7 (No establ ref range); CALCIUM 9.1 mg/dL (8.5-10.1); CREATININE 1.64 mg/dL (0.55-1.02); EST CRCL DRUG DOSING (CG) 27.49 mL/min; POTASSIUM,K 4.5 mmol/L (3.5-5.1); PROTEIN TOTAL,TP 7.3 g/dL (6.4-8.2)
== END 2024-04-08 15:20 | disposition swing bed (61) ==
LOC: DL.ED 13:41
DX: G20.A1 Parkinson's disease without dyskinesia, without mention of fluctuations (principal); R40.4 Transient alteration of awareness; I12.9 Hypertensive chronic kidney disease with stage 1 through stage 4 chronic kidney disease, or unspecified chronic kidney disease; N18.9 Chronic kidney disease, unspecified; E03.9 Hypothyroidism, unspecified; E78.00 Pure hypercholesterolemia, unspecified; Z88.0 Allergy status to penicillin; Z88.2 Allergy status to sulfonamides; Z88.8 Allergy status to other drugs, medicaments and biological substances; Z79.890 Hormone replacement therapy; Z79.899 Other long term (current) drug therapy
CPT/HCPCS: 36415; 70450; 80053; 81003; 82140; 82947; 83735; 85025; 99285

== ENCOUNTER 2024-04-10 09:14 | Emergency (ER) | payer MEDICARE, OTHER ==
[~2024-04-10 09:14] MED LIST changes: -Dexamethasone/Tobramycin 0.1-0.3% Ophth Oint 3.5 GM Tube ONE; -Proparacaine 0.5% Ophth Soln 15 ML Bottle ONE; +Sodium Chloride 0.9% 10 ML Syringe FLUSH PRN
[2024-04-10] MEDS: Sodium Chloride 0.9% 1,000 ML IV ONE (09:20)
[2024-04-10 09:23] LABS: BASOPHILS PERCENT AUTO 0.4 % (0.0-1.0); EOSINOPHILS PERCENT AUTO 1.5 % (1.0-3.0); HEMATOCRIT 41.4 % (37.0-47.0); HEMOGLOBIN 13.7 g/dL (12.0-16.0); LYMPHOCYTES PERCENT AUTO 23.3 % (20.5-50.1); MEAN CORPUSCULAR HEMOGLOBIN 31.2 pg (27.0-34.0); MEAN CORPUSCULAR HGB CONC 33.1 g/dL (33.0-35.0); MEAN CORPUSCULAR VOLUME 94.3 fL (80-100); MONOCYTES PERCENT AUTO 8.3 % (2-8); NEUTROPHILS PERCENT AUTO 66.5 % (42.2-75.2); PLATELET COUNT,PLT 250 10^3/uL (150-450); RED BLOOD CELL COUNT 4.39 10^6/uL (4.2-5.4); WHITE BLOOD CELL COUNT,WBC 7.2 10^3/uL (5.0-10.0)
[2024-04-10 09:42] LABS: PTT,PARTIAL THROMBOPLSTIN TIME 22.2 SEC (22.0-34.0)
[2024-04-10] MEDS: Sodium Chloride 0.9% 500 ML IV ONE (09:45)
[2024-04-10 09:48] LABS: D-DIMER QUANTITATIVE < 100 ng/mL (0-400)
[2024-04-10 10:01] LABS: APPEARANCE,URINE CLEAR (CLEAR); BILIRUBIN,URINE NEGATIVE (NEGATIVE); COLOR,URINE YELLOW (YELLOW); GLUCOSE,URINE 500 (NEGATIVE); KETONES,URINE NEGATIVE (NEGATIVE); LEUKOCYTE ESTERASE,URINE TRACE (NEGATIVE); NITRITE,URINE NEGATIVE (NEGATIVE); OCCULT BLOOD,URINE NEGATIVE (NEGATIVE); PH,URINE 5.5 (5.0-9.0); PROTEIN,URINE NEGATIVE (NEGATIVE); UROBILINOGEN,URINE 0.2 mg/dL (0.2-1.0)
[2024-04-10 10:07] LABS: AMPHETAMINES,URINE NEGATIVE (NEGATIVE); BARBITURATES,URINE NEGATIVE (NEGATIVE); BENZODIAZEPINE,URINE NEGATIVE (NEGATIVE); MDMA (ECSTASY), URINE NEGATIVE (NEGATIVE); METHADONE,URINE NEGATIVE (NEGATIVE); METHAMPHETAMINES,URINE NEGATIVE (NEGATIVE); OPIATES,URINE NEGATIVE (NEGATIVE); OXYCODONE,URINE NEGATIVE (NEGATIVE); PHENCYCLIDINE,URINE NEGATIVE (NEGATIVE); TCA,URINE NEGATIVE (NEGATIVE)
[2024-04-10 10:12] LABS: BACTERIA,URINE FEW /HPF (0-FEW/HPF); EPITHELIAL CELLS,URINE OCCASIONAL /HPF (NOT SEEN); MUCUS,URINE OCCASIONAL /LPF (NOT SEEN); RBC,URINE 0-5 /HPF (0-5)
[2024-04-10 10:40] LABS: A/G RATIO 1.2; ALBUMIN 3.7 g/dL (3.4-5.0); ANION GAP 16.5 mEq/L (7-13); BILIRUBIN TOTAL 0.4 mg/dL (0.2-1.0); BUN/CREATININE RATIO 19.5 (No establ ref range); CALCIUM 9.1 mg/dL (8.5-10.1); CREATININE 1.74 mg/dL (0.55-1.02); EST CRCL DRUG DOSING (CG) 25.91 mL/min; POTASSIUM,K 4.5 mmol/L (3.5-5.1); PROTEIN TOTAL,TP 6.9 g/dL (6.4-8.2)
[2024-04-10] MEDS: Cephalexin 500 MG Cap PO ONE (11:22)
[2024-04-10 11:41] VITALS: BP 111/70; PULSE 73
== END 2024-04-10 11:58 | disposition home or self-care (01) ==
LOC: DL.ED 09:14
DX: R42 Dizziness and giddiness (principal); E86.0 Dehydration; N39.0 Urinary tract infection, site not specified; I12.9 Hypertensive chronic kidney disease with stage 1 through stage 4 chronic kidney disease, or unspecified chronic kidney disease; N18.9 Chronic kidney disease, unspecified; E78.00 Pure hypercholesterolemia, unspecified; E11.22 Type 2 diabetes mellitus with diabetic chronic kidney disease; E03.9 Hypothyroidism, unspecified; Z88.0 Allergy status to penicillin; Z88.2 Allergy status to sulfonamides; Z88.8 Allergy status to other drugs, medicaments and biological substances; Z79.890 Hormone replacement therapy; Z79.899 Other long term (current) drug therapy
CPT/HCPCS: 70450; 71046; 80053; 80305; 81001; 82550; 83735; 83880; 84484; 85025; 85379; 85610; 85730; 87086; 93005; 96360; 99285; A9270; J7030